=== PATIENT | male | born 1995 ===

== ENCOUNTER 2021-07-03 17:55 | Emergency (ER) | payer SELFPAY ==
[~2021-07-03] VITALS: Ht 172.7 cm; Wt 95.0 kg
--- NOTE | 2021-07-03 19:39 | NUR ---
PT [place] SPEAKING. BARBARA WRIGHT AT BEDSIDE. CC OF CP X 15 TIMES THATS WORSENED TODAY, FEELS LIKE PINS AND NEEDLES. HAS HAD SOME N/V IN LAST FEW DAYS. WHEN VOMITING PT STATES IT'S STOMACH ACID LIKE. HX OF DM, HERE VISITING FROM [place].
[2021-07-03] MEDS ORDERED: MAALOX/HYOSCYAMINE/LIDOCAINE 45 ML BTL ONE (19:43)
[2021-07-03] MEDS ORDERED: MAALOX/HYOSCYAMINE/LIDOCAINE 45 ML BTL PO ONE (20:00)
--- NOTE | 2021-07-03 21:00 | NUR ---
FRIEND AT BEDSIDE
[2021-07-03 21:12] LABS: BASOPHILS % (AUTO) 1 % (0-1); EOSINOPHILS % (AUTO) 2 % (1-7); LYMPHOCYTES % (AUTO) 30 % (22-44); MEAN CORPUSCULAR HEMOGLOBIN 30.2 pg (27.5-34.5); MEAN CORPUSCULAR HGB CONC 34.7 g/dL (33.2-36.2); MONOCYTES % (AUTO) 8 % (2-9); NEUTROPHILS % (AUTO) 60 % (42-75); PLATELET COUNT 220 x10^3/uL (130-400); RED CELL DISTRIBUTION WIDTH 13.6 % (9.4-14.8)
[2021-07-03 21:25] LABS: ALANINE AMINOTRANSFERASE 33 U/L (12-78); ALBUMIN 3.8 g/dL (3.4-5.0); ANION GAP 9 mmol/L (5-15); CHLORIDE 108 mmol/L (98-107); CREATININE 0.83 mg/dL (0.7-1.3)
[2021-07-03 21:29] LABS: ALKALINE PHOSPHATASE 85 U/L (45-117); BILIRUBIN,TOTAL 0.7 mg/dL (0.2-1.0); TOTAL PROTEIN 7.7 g/dL (6.4-8.2); TROPONIN I < 0.015 ng/mL (0.000-0.045)
[2021-07-03 21:30] VITALS: BP 103/79
--- NOTE | 2021-07-03 21:57 | NUR ---
BARBARA WRIGHT, AT BEDSIDE FOR RECHECK. PT UP FOR DC
== END 2021-07-03 22:11 | disposition home or self-care (01) ==
LOC: ED 18:25
DX: K21.9 Gastro-esophageal reflux disease without esophagitis (principal); M94.0 Chondrocostal junction syndrome [Tietze]; R07.89 Other chest pain; R94.31 Abnormal electrocardiogram [ECG] [EKG]; E11.9 Type 2 diabetes mellitus without complications
CPT/HCPCS: 36415; 71045; 80053; 84484; 85025; 93005; 99285